=== PATIENT | male | born 1980 | race American Indian/Alaskan Native ===

== ENCOUNTER 2016-12-20 11:31 | Emergency (ER) | payer OTHER ==
--- NOTE | 2016-12-20 12:02 | Emergency Department Report ---
Chief Complaint: Dyspnea/Respdistress Stated Complaint: HALI/CHEST PAIN Time Seen by Provider: 12/20/16 11:56 - HPI History of Present Illness: 36-year-old -[place] male comes in with complaint of dyspnea chest pain that started around 10:00 this morning. He also complains of a cough that he's had over a week. He denies any fever no chills and no nausea but vomited one time. He has no past medical history. - Exam Vital Signs: Vital Signs 12/20/16 11:50 Temperature 98.0 F Pulse Rate 78 Respiratory 20 Rate Blood Pressure 138/91 O2 Sat by Pulse 98 Oximetry Physical Exam: Alert and oriented 3 in but to talk in complete sentences is coughing during exam. Cardiovascular S1-S2 regular rate and rhythm respiratory clear to arrest his bilateral abdomen soft. Lower leg there is no edema appreciated MSE screening note: Focused history and physical exam performed. Due to findings the following was ordered: Dyspnea protocol was ordered patient be evaluated in the main ER ED Disposition for MSE Condition: Stable
--- NOTE | 2016-12-20 12:14 | XRay Report ---
Chest 2 views: History: Shortness of breath. Findings: Normal cardiomediastinal silhouette. Trachea is midline. No consolidation, pneumothorax or pleural effusion. Impression: No acute cardiopulmonary findings.
[2016-12-20 13:43] LABS: Basophils % (Auto) 0.9 % (0.0-1.8); Eosinophils % (Auto) 1.3 % (0.0-4.3); Hematocrit 43.6 % (35.5-45.6); Hemoglobin 14.4 gm/dl (11.8-15.2); Mean Corpuscular HGB Conc 33 % (32-34); Mean Corpuscular Hemoglobin 30 pg (28-32); Mean Corpuscular Volume 90 fl (84-94); Platelet Count 341 K/mm3 (140-440); Red Blood Count 4.87 M/mm3 (3.65-5.03); Red Cell Distribution Width 13.1 % (13.2-15.2); White Blood Count 6.7 K/mm3 (4.5-11.0)
[2016-12-20 13:59] LABS: Creatine Kinase MB 3.5 ng/mL (0.0-4.0)
[2016-12-20 14:00] LABS: Anion Gap 15 mmol/L; BUN/Creatinine Ratio 18.57; Blood Urea Nitrogen 13 mg/dL (9-20); Calcium 9.6 mg/dL (8.4-10.2); Carbon Dioxide 26 mmol/L (22-30); Chloride 103.3 mmol/L (98-107); Glucose 92 mg/dL (75-100); Potassium 4.3 mmol/L (3.6-5.0); Sodium 140 mmol/L (137-145)
--- NOTE | 2016-12-20 16:25 | Emergency Department Report ---
HPI - General Chief Complaint: Dyspnea/Respdistress Time Seen by Provider: 12/20/16 11:56 - HPI HPI: Room 4 The patient is a 36-year-old male presenting with a chief complaint of chest pain and shortness of breath. The patient states 1 month ago he had "a cold" which included a cough. The patient states for the past week his had intermittent shortness of breath and right-sided chest pain has been sharp in nature. Patient states today the shortness of breath worsened and wall chest pain he had an episode of nausea and vomiting. Patient denies diaphoresis with chest pain. The patient states she's never had a stress test or cardiac catheterization. Location: Chest Duration: Intermittent times one week Quality: Sharp Severity: Currently 0/10 Modifying factors: [see above] Context: [see above] Mode of transportation: Unknown ED Past Medical Hx - Past Medical History Hx Asthma: Yes - Surgical History Past Surgical History?: No Additional Surgical History: Neck, jaw, nose, - Family History Family history: no significant - Social History Smoking Status: Never Smoker Substance Use Type: None (denies illicit drug use), Alcohol (nightly) - Medications Home Medications: Home Medications Medication Instructions Recorded Confirmed Last Taken Type Albuterol Sulfate [Albuterol 0.63% 0.63 mg IH TID PRN #90 ml 12/20/16 Unknown Rx NEBS] ED Review of Systems ROS: Stated complaint: HALI/CHEST PAIN Other details as noted in HPI Comment: All other systems reviewed and negative Constitutional: denies: chills, fever Eyes: denies: eye pain, eye discharge, vision change ENT: denies: ear pain, throat pain Respiratory: cough, shortness of breath Cardiovascular: chest pain Endocrine: no symptoms reported Gastrointestinal: nausea, vomiting Genitourinary: denies: urgency, dysuria Musculoskeletal: denies: back pain, joint swelling, arthralgia Skin: denies: rash, lesions Neurological: denies: headache, weakness, paresthesias Psychiatric: denies: anxiety, depression Hematological/Lymphatic: denies: easy bleeding, easy bruising Physical Exam - Physical Exam Vital Signs: Vital Signs 12/20/16 11:50 Temperature 98.0 F Pulse Rate 78 Respiratory 20 Rate Blood Pressure 138/91 O2 Sat by Pulse 98 Oximetry Physical Exam: GENERAL: The patient is well-developed well-nourished male lying on stretcher not appearing to be in acute distress. [] HEENT: Normocephalic. Atraumatic. Extraocular motions are intact. Patient has moist mucous membranes. NECK: Supple. Trachea midline CHEST/LUNGS: Clear to auscultation. There is no respiratory distress noted. HEART/CARDIOVASCULAR: Regular. There is no tachycardia. There is no gallop rub or murmur. ABDOMEN: Abdomen is soft, nontender. Patient has normal bowel sounds. There is no abdominal distention. SKIN: There is no rash. There is no edema. There is no diaphoresis. NEURO: The patient is awake, alert, and oriented. The patient is cooperative. The patient has normal speech MUSCULOSKELETAL: There is no evidence of acute injury. ED Course Vital Signs 12/20/16 11:50 Temperature 98.0 F Pulse Rate 78 Respiratory 20 Rate Blood Pressure 138/91 O2 Sat by Pulse 98 Oximetry - Consultations Consultation #1: 12/20/16 16:36 Discussed with patient and patient's over the phone at length my concern for his chest pain. Patient and verbalized understanding of increased morbidity and/or mortality should he leave the hospital AGAINST MEDICAL ADVICE. Patient desires to leave the hospital AGAINST MEDICAL ADVICE. Patient advised if he changes his mind at any time he should return to the hospital for further evaluation ED Medical Decision Making - Lab Data Result diagrams: 12/20/16 13:22 12/20/16 13:22 Laboratory Tests 12/20/16 12/20/16 12/20/16 13:22 13:22 13:22 WBC 6.7 RBC 4.87 Hgb 14.4 Hct 43.6 MCV 90 MCH 30 MCHC 33 RDW 13.1 L Plt Count 341 Lymph % (Auto) 38.8 H Archer % (Auto) 4.7 Eos % (Auto) 1.3 Baso % (Auto) 0.9 Lymph # 2.6 Archer # 0.3 Eos # 0.1 Baso # 0.1 Seg Neutrophils % 54.3 Seg Neutrophils # 3.6 Sodium 140 Potassium 4.3 Chloride 103.3 Carbon Dioxide 26 Anion Gap 15 BUN 13 Creatinine 0.7 L Estimated GFR > 60 BUN/Creatinine Ratio 18.57 Glucose 92 Calcium 9.6 Total Creatine Kinase 465 H CK-MB (CK-2) 3.5 CK-MB (CK-2) Rel Index 0.7 Troponin T < 0.010 - EKG Data -: EKG Interpreted by Me EKG shows normal: sinus rhythm Rate: normal - EKG Data When compared to previous EKG there are: previous EKG unavailable Interpretation: nonspecific ST-T wave linnette (T-wave inversions in lead 2) - Radiology Data Radiology results: image reviewed (chest x-ray) interpreted by me: Chest x-ray- no focal infiltrates, no pneumothorax - Differential Diagnosis ACS, bronchitis, pneumonia, pneumothorax Critical care attestation.: If time is entered above; I have spent that time in minutes in the direct care of this critically ill patient, excluding procedure time. ED Disposition Clinical Impression: Chest pain, Shortness of breath Disposition: LEFT AGAINST MEDICAL ADVICE Is pt being admited?: No Does the pt Need Aspirin: Yes Condition: Undetermined Instructions: Chest Pain (ED) Additional Instructions: Return to the emergency department immediately should you develop worsening symptoms, fever, inability to tolerate food or liquid or any other concerns. Prescriptions: Albuterol Sulfate [Albuterol 0.63% NEBS] 0.63 mg IH TID PRN #90 ml PRN Reason: Wheezing Referrals: PRIMARY CARE,MD [Primary Care Provider] - 3-5 Days Time of Disposition: 16:32 (patient leaving AMA)
[2016-12-20] MEDS ORDERED: ASPIRIN PO ONE (16:37)
[2016-12-20 16:45] VITALS: BP 122/71
== END 2016-12-20 16:33 | disposition left against medical advice (07) ==
LOC: ED 11:31
DX: R07.9 Chest pain, unspecified (principal); R06.02 Shortness of breath
CPT/HCPCS: 36415; 71020; 80048; 82550; 82553; 84484; 85025; 93005; 93010; 99284

== ENCOUNTER 2017-04-05 15:15 | Emergency (ER) | payer SELFPAY ==
[2017-04-05 15:32] VITALS: BP 132/86
[2017-04-05] MEDS ORDERED: TYLENOL PO ONE (15:32)
--- NOTE | 2017-04-05 16:28 | Emergency Department Report ---
Entered by RADHA HERNANDEZ, acting as scribe for TOMMY GAINES NP. 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, now with pain and tingling from right elbow to 3, 4 and, 5th digits Onset/Timin -: hour(s), This afternoon Location: upper extremity Radiation: distal Severity scale (0 -10): 3 Quality: aching Consistency: constant Improves with: rest Worsens with: none Associated Symptoms: denies: confusion, chest pain, cough, diaphoresis, fever/ chills, headaches, loss of appetite, malaise, nausea/vomiting, rash, seizure, shortness of breath, syncope, weakness Treatments Prior to Arrival: none - Related Data Previous Rx's Medication Instructions Recorded Last Taken Type Albuterol Sulfate [Albuterol 0.63% 0.63 mg IH TID PRN #90 ml 12/20/16 Unknown Rx NEBS] Naproxen [Naprosyn TAB] 500 mg PO BID PRN #30 tablet 04/05/17 Unknown Rx Allergies Allergy/AdvReac Type Severity Reaction Status Date / Time No Known Allergies Allergy Unverified 12/20/16 11:50 ED Review of Systems Constitutional: denies: chills, fever Eyes: denies: eye pain, eye discharge, vision change ENT: denies: ear pain, throat pain Respiratory: denies: cough, shortness of breath, wheezing Cardiovascular: denies: chest pain, palpitations Endocrine: no symptoms reported Gastrointestinal: denies: abdominal pain, nausea, diarrhea Genitourinary: denies: urgency, dysuria Musculoskeletal: denies: back pain, joint swelling, arthralgia Skin: denies: rash, lesions Neurological: denies: headache, weakness, numbness, paresthesias, confusion, abnormal gait, vertigo, other Psychiatric: denies: anxiety, depression Hematological/Lymphatic: denies: easy bleeding, easy bruising ED Past Medical Hx - Past Medical History Previous Medical History?: Yes Hx Hypertension: No Hx CVA: No Hx Heart Attack/AMI: No Hx Congestive Heart Failure: No Hx Diabetes: No Hx Deep Vein Thrombosis: No Hx Pulmonary Embolism: No Hx GERD: No Hx Liver Disease: No Hx Renal Disease: No Hx of Cancer: No Hx Sickle Cell Disease: No Hx Arthritis: No Hx Headaches / Migraines: No Hx Seizures: No Hx Kidney Stones: No Hx Psychiatric Treatment: No Hx Asthma: Yes Hx COPD: No Hx Tuberculosis: No Hx Dementia: No Hx HIV: No Additional medical history: anxiety - Surgical History Past Surgical History?: Yes Hx Coronary Stent: No Hx Open Heart Surgery: No Hx Pacemaker: No Hx Internal Defibrillator: No Hx Cholecystectomy: No Hx Appendectomy: No Hx Breast Surgery: No Additional Surgical History: Neck, jaw, nose, - Social History Smoking Status: Never Smoker Substance Use Type: None - Medications Home Medications: Home Medications Medication Instructions Recorded Confirmed Last Taken Type Albuterol Sulfate [Albuterol 0.63% 0.63 mg IH TID PRN #90 ml 12/20/16 Unknown Rx NEBS] Naproxen [Naprosyn TAB] 500 mg PO BID PRN #30 tablet 04/05/17 Unknown Rx ED Physical Exam - General Limitations: No Limitations General appearance: alert, in no apparent distress - Head Head exam: Present: atraumatic, normocephalic - Eye Eye exam: Present: normal appearance - ENT ENT exam: Present: mucous membranes moist - Neck Neck exam: Present: normal inspection - Respiratory Respiratory exam: Present: normal lung sounds bilaterally. Absent: respiratory distress - Cardiovascular Cardiovascular Exam: Present: regular rate, normal rhythm, normal heart sounds. Absent: tachycardia, irregular rhythm, rubs, gallop - Expanded Cardiovascular Exam Expanded Peripheral pulses: 2+: Carotid (R), Carotid (L), Radial (R), Radial (L), Posterior Tibialis (R), Posterior Tibialis (L), Dorsalis Pedis (R), Dorsalis Pedis (L) - GI/Abdominal GI/Abdominal exam: Present: soft, normal bowel sounds - Rectal Rectal exam: Present: deferred - Extremities Exam Extremities exam: Present: normal inspection - Expanded Upper Extremity Exam Right General: Present: normal inspection Shoulder Exam: Present: normal inspection, full ROM. Absent: tenderness Upper Arm exam: Present: normal inspection, full ROM. Absent: tenderness Elbow exam: Present: normal inspection, full ROM. Absent: tenderness, swelling , abrasion, laceration, ecchymosis, deformity, crepidus, dislocation, pain w/ pronation/supination, tenderness over radial head Forearm Wrist exam: Present: normal inspection. Absent: full ROM, tenderness, swelling, abrasion, laceration, ecchymosis, deformity, crepidus, dislocation, erythema, tenderness over anatomical snuff box, pain with axial thumb loading Hand Wrist exam: Present: normal inspection, full ROM. Absent: tenderness, swelling, abrasion, laceration, ecchymosis, deformity, crepidus, dislocation, erythema, amputation, nail avulsion, subungual hematoma Neuro motor exam: Present: wrist extension intact, thumb opposition intact, thumb IP flexion intact, thumb adduction intact, fingers 2-5 abduction intact Neurosensory exam: Present: 2-point discrimination, radial nerve intact, ulnar nerve intact, median nerve intact Vascular: Present: normal capillary refill, radial pulse, brachial pulse, ulnar pulse. Absent: vascular compromise, Pallo, pulse deficit radial art, pulse deficit ulnar art, pulse deficit brachial art - Back Exam Back exam: Present: normal inspection - Neurological Exam Neurological exam: Present: alert, oriented X3, CN II-XII intact - Expanded Neurological Exam Expanded Patient oriented to: Present: person, place, time Speech: Present: fluid speech Cranial nerves: EOM's Intact: Normal, Gag Reflex: Normal, Tongue Deviation: Normal, Nystagmus: Normal, Facial Sensation: Normal Cerebellar function: Finger to Nose: Normal, Heel to Sewell: Normal, Romberg: Normal Upper motor neuron: Atilio Neglect: Normal, Pronator Drift: Normal, Babinski Sign : Normal, Sensory Extinction: Normal Sensory exam: Upper Extremity Light Touch: Normal, Upper Extremity Pin Prick: Normal, Upper Extremity Temperature: Normal, UE 2 Point Discrimination: Normal, Lower Extremity Light Touch: Normal, Lower Extremity Pin Prick: Normal, Lower Extremity Temperature: Normal, LE 2 Point Discrimination: Normal Motor strength exam: RUE: 5, LUE: 5, RLE: 5, LLE: 5 DTR: bicep (R): 2+, bicep (L): 2+, tricep (R): 2+, tricep (L): 2+, knee (R): 2+ , knee (L): 2+, ankle (R): 2+, ankle (L): 2+ Best Eye Response (Fords): (4) open spontaneously Best Motor Response (Fords): (6) obeys commands Best Verbal Response (Morgan): (5) oriented Fords Total: 15 - Psychiatric Psychiatric exam: Present: normal affect, normal mood - Skin Skin exam: Present: warm, dry, intact, normal color. 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 pt given post electric shock instructions , symptoms to return to emergency , cp, dizziness , numbness , lightheadedness, paralysis , pt verbalized agreement and understanding of discharge instrucions. ED Disposition Clinical Impression: Electrical shock sensation Electric current accident Qualifiers: Encounter type: initial encounter Qualified Code(s): W86.8XXA - Exposure to other electric current, initial encounter Disposition: -01 TO HOME OR SELFCARE Is pt being admited?: No Does the pt Need Aspirin: No Condition: Stable Instructions: Paresthesia (ED), Electrical Cosme in Adults (ED) Prescriptions: Naproxen [Naprosyn TAB] 500 mg PO BID PRN #30 tablet PRN Reason: Pain Referrals: PRIMARY CARE, [Primary Care Provider] - 3-5 Days BETH VASQUEZ MD [Staff Physician] - 3-5 Days Forms: Work/School Release Form(ED) Time of Disposition: 16:26 This documentation as recorded by the DAVID cole ELIZABETH,accurately reflects the service I personally performed and the decisions made by , TOMMY GAINES, WOOD TURNING LATHE OPERATOR.
== END 2017-04-05 16:35 | disposition home or self-care (01) ==
LOC: ED 15:15
DX: T75.4XXA Electrocution, initial encounter (principal); J45.909 Unspecified asthma, uncomplicated; F41.9 Anxiety disorder, unspecified; W86.8XXA Exposure to other electric current, initial encounter; Y93.89 Activity, other specified; Y99.9 Unspecified external cause status; Y92.89 Other specified places as the place of occurrence of the external cause
CPT/HCPCS: 93005; 93010; 99283